=== PATIENT | female | born 1950 | race Caucasian/White ===

== ENCOUNTER 2023-11-16 12:55 | Inpatient (IN) | payer MEDICARE ==
[~2023-11-16] VITALS: Ht 152.4 cm; Wt 68.0 kg
[2023-11-16] MEDS ORDERED: PIPERACILLIN/TAZO 3.375G/50ML 50 ML IV ONE (14:30)
[2023-11-16 16:02] LABS: BASOPHILS % 0.4 % (0.0-2.0); EOSINOPHILS % 0.8 % (0.0-5.0); HEMATOCRIT. 31.8 % (36.0-48.0); HEMOGLOBIN. 10.3 g/dL (12.0-16.0); LYMPHOCYTES % 20.7 % (20.0-50.0); MEAN CORPUSCULAR HEMOGLOBIN 28.5 pg (28.0-32.0); MEAN CORPUSCULAR HGB CONC 32.3 g/dL (31.0-37.0); MONOCYTES % 7.1 % (2.0-8.0); PLATELET 487 x1000/uL (130-400); RED BLOOD CELL COUNT 3.61 mill/uL (4.2-5.4); RED CELL DISTRIBUTION WIDTH 13.7 % (11.6-14.6); WHITE BLOOD COUNT 15.5 x1000/uL (4.5-11.0)
[2023-11-16 16:05] LABS: DIFFERENTIAL COMMENT 1
[2023-11-16 16:23] LABS: ALANINE AMINOTRANSFERASE 13 IU/L (10-49); ALBUMIN 4.5 g/dL (3.2-4.8); ASPARTATE AMINOTRANSFERASE 23 IU/L (<34); BILIRUBIN TOTAL 0.3 mg/dL (0.1-1.0); CALCIUM 8.9 mg/dL (8.7-10.4); CARBON DIOXIDE 20 mEq/L (21-32); CHLORIDE 106 mEq/L (98-107); CREATININE 1.1 mg/dL (0.6-1.0); GLUCOSE 93 mg/dL (70-105); POTASSIUM 4.6 mEq/L (3.5-5.1); PROTEIN TOTAL 9.3 g/dL (6.0-8.3); SODIUM 134 mEq/L (136-145); UREA NITROGEN BLOOD 33 mg/dL (9-23)
[2023-11-16] MEDS: PIPERACILLIN/TAZO 3.375G/50ML 50 ML IV NR (16:55)
[2023-11-16] MEDS: IOHEXOL-300 100 ML BOTTLE ONE (23:12)
[2023-11-17] VITALS (7 sets, daily range): BP systolic 120–178; BP diastolic 45–62; PULSE 69–70; RESP 17–19; TEMP 95.7–99.3; O2SAT 99
[2023-11-17] MEDS ORDERED: CLONIDINE 0.1MG TABLET PO PRN (04:30)
[2023-11-17] MEDS ORDERED: IPRATROPIUM/ALBUTEROL 0.5-3(2.5)MG/3ML NEB HHN PRN (04:30)
[2023-11-17] MEDS: METHYLPREDNISOLONE SOD SUCC 40MG/ML (ACT-O-VIAL) IV SCH (05:40)
[2023-11-17] MEDS: PANTOPRAZOLE 40MG DR TABLET PO SCH (06:58)
[2023-11-17] MEDS: ENOXAPARIN 40MG/0.4ML SYR SUBCUT SCH (09:41)
[2023-11-17] MEDS: LEVOFLOXACIN 500MG TABLET PO SCH (12:00)
[2023-11-17] MEDS: PIPERACILLIN/TAZO 3.375G/50ML 50 ML IV SCH (14:26)
[2023-11-17 15:54] LABS: BASOPHILS % 0.7 % (0.0-2.0); EOSINOPHILS % 0.8 % (0.0-5.0); HEMATOCRIT. 28.1 % (36.0-48.0); HEMOGLOBIN. 9.3 g/dL (12.0-16.0); LYMPHOCYTES % 17.2 % (20.0-50.0); MEAN CORPUSCULAR HEMOGLOBIN 28.8 pg (28.0-32.0); MEAN CORPUSCULAR HGB CONC 33.2 g/dL (31.0-37.0); MEAN CORPUSCULAR VOLUME 86.7 fL (81.0-99.0); MEAN PLATELET VOLUME 7.6 fl (7.4-10.4); NEUTROPHILS % 73.3 % (40.0-76.0); PLATELET 429 x1000/uL (130-400); RED BLOOD CELL COUNT 3.24 mill/uL (4.2-5.4); WHITE BLOOD COUNT 9.7 x1000/uL (4.5-11.0)
[2023-11-17 15:55] LABS: INR 1.1; PARTIAL THROMBOPLASTIN TIME 25.3 sec (23.4-31.0); PROTHROMBIN TIME 12.4 sec (9.6-11.0)
[2023-11-17 16:06] LABS: ALANINE AMINOTRANSFERASE 10 IU/L (10-49); ALBUMIN 4.2 g/dL (3.2-4.8); ASPARTATE AMINOTRANSFERASE 20 IU/L (<34); BILIRUBIN TOTAL 0.3 mg/dL (0.1-1.0); CALCIUM 8.7 mg/dL (8.7-10.4); CARBON DIOXIDE 22 mEq/L (21-32); CHLORIDE 107 mEq/L (98-107); CREATININE 1.3 mg/dL (0.6-1.0); GLUCOSE 121 mg/dL (70-105); POTASSIUM 4.8 mEq/L (3.5-5.1); PROTEIN TOTAL 8.5 g/dL (6.0-8.3); SODIUM 136 mEq/L (136-145); UREA NITROGEN BLOOD 30 mg/dL (9-23)
== END 2023-11-17 23:56 | disposition short-term general hospital (02) | DRG 300 ==
LOC: ER 12:55 → 5WST 16:23 → EDBEDREQ 18:35 → EDBEDREQTM 18:35 → 6EST 11-17 03:27
PROVIDERS: ADMIT Internal Medicine; ATTEND Internal Medicine
DX: E11.52 Type 2 diabetes mellitus with diabetic peripheral angiopathy with gangrene (principal); I96 Gangrene, not elsewhere classified; L97.519 Non-pressure chronic ulcer of other part of right foot with unspecified severity; E11.628 Type 2 diabetes mellitus with other skin complications; I10 Essential (primary) hypertension; E78.00 Pure hypercholesterolemia, unspecified; L08.9 Local infection of the skin and subcutaneous tissue, unspecified; Z20.822 Contact with and (suspected) exposure to COVID-19
CPT/HCPCS: 36415; 73630; 75635; 80053; 82962; 83605; 85025; 85651; 86850; 86900; 87426; 93923; 99285; J1650; J2543; Q9967